=== PATIENT | male | born 1990 | race African-American/Black ===

== ENCOUNTER 2025-07-16 09:24 | Emergency (ER) | payer OTHER ==
[~2025-07-16] VITALS: Ht 182.9 cm; Wt 75.0 kg
[2025-07-16 09:37] VITALS: TEMP 36.9; O2SAT 99
[2025-07-16] MEDS ORDERED: IBUPROFEN 800MG TABLET PO ONE (10:45)
[2025-07-16] MEDS: IBUPROFEN 400MG TABLET PO NR (11:01)
[2025-07-16] MEDS ORDERED: IBUP-2030 MT (11:53)
[2025-07-16] MEDS ORDERED: CYCL5TAB3 MT (11:53)
[2025-07-16 12:21] VITALS: BP 112/70; PULSE 75; RESP 14; O2SAT 100
== END 2025-07-16 12:30 | disposition home or self-care (01) ==
LOC: ER 09:24
DX: S80.01XA Contusion of right knee, initial encounter (principal); V43.52XA Car driver injured in collision with other type car in traffic accident, initial encounter; Y92.410 Unspecified street and highway as the place of occurrence of the external cause; Y93.89 Activity, other specified; Y99.8 Other external cause status
CPT/HCPCS: 73562; 99283